=== PATIENT | female | born 1945 | race Caucasian/White ===

== ENCOUNTER 2022-12-04 02:02 | Outpatient (CLI) | payer MEDICARE, MEDICAID, SELFPAY ==
--- NOTE | 2022-12-04 08:00 | DI.CT_ITS ---
Exam(s) CT CHEST WO EXAM: CT CHEST WO CLINICAL HISTORY: interstitial abnormality on CXR, crackles on exam,F/U ABNL CXR,R93.89 TECHNIQUE: Imaging Protocol: Axial computed tomography images with coronal and sagittal reformatted images were created and reviewed CONTRAST MATERIAL: Intravenous: Omnipaque 350 Contrast volume:structured data ml. COMPARISON: CT CT RENAL COLIC from 05/12/2022 CR XR CHEST 1 VW from 09/04/2022 CR XR CHEST 1 VW from 09/25/2022 FINDINGS: Exam limited by respiratory motion. No visible emphysematous edges. Mild bronchiectasis upper and l ower lobes. No bronchial wall thickening. Pulmonary parenchyma: No consolidation. No dominant measurable mass. No pulmonary nodules identified . Interstitial changes greatest at posterior lung bases. Tracheobronchial tree: No bronchiectasis or mucous plugging. Mediastinum and Sarah: No dominant adenopathy or fluid collection. Pleura: No effusion or pneumothorax. Heart: The heart is not dilated. coronary artery calcifications are seen. Aorta: Thoracic aorta non-dilated. Upper abdomen: Cyst left kidney. No follow-up recommended. Patient is status post cholecystectomy. No biliary dilatation. Bones: Degenerative changes. Several mild compression fractures noted in the thoracic region. Mode rate L1 compression fracture stable from prior CT. Soft tissues: Unremarkable. IMPRESSION: Moderate interstitial changes. Mild bronchiectasis. No evidence of pulmonary nodule or other suspicio us finding. RADIATION DOSE DELIVERED: 558.85mGy.cm Total DLP DATA REPOSITORY: All CT scans at this facility are submitted to the National Radiology Data Registry (NRDR) Dose Index Registry (DIR) with the [employer] ([employer]). RADIATION OPTIMIZATION: All CT scans at this facility use at least one of these dose optimization te chniques: automated exposure control; mA and/or kV adjustment per patient size (includes targeted exa ms where dose is matched to clinical indication); or iterative reconstruction.
== END 2022-12-04 02:22 ==
LOC: DI 02:02
PROVIDERS: PCP Hospitalist; Visit Provider Student in an Organized Health Care Education/Training Program
DX: R91.8 Other nonspecific abnormal finding of lung field (principal); J47.9 Bronchiectasis, uncomplicated
CPT/HCPCS: 71250

== ENCOUNTER 2022-12-04 03:36 | Outpatient (CLI) | payer MEDICARE, MEDICAID, SELFPAY ==
[2022-12-04] MEDS: Albuterol HFA 18 GM 200 PUFF INH IH (15:41)
[2022-12-04] MEDS: Inhaler, Assist Device 1 EACH MC (15:41)
--- NOTE | 2022-12-17 07:18 | W.PFT ---
Date of service: 12/04/22 Time of Service: 14:34 Pulmonary Function Test Result Requesting Provider Rose Indications: COPD Interpretation Spirometry: There is no airflow limitation. There is restrictive appearing spirometry Lung Volumes: patient unable to perform Diffusion Capacity: patient unable to perform Impression Restrictive appearing spirometry Clinical Correlation therefore is recommended.
--- NOTE | 2022-12-18 13:44 | W.PFT ---
Date of service: 12/04/22 Time of Service: 15:10 Pulmonary Function Test Result Requesting Provider Rose Indications: COPD Note: 6 Minute Walk Test Distance walked: 300 feet Desaturations: 93% to 90% Heart rate changes: none Recommendation:No supplemental oxygen required Alysa Rose MD Pulmonary & Critical Care Medicine Clinical Correlation therefore is recommended.
== END 2022-12-04 03:37 | disposition home or self-care (01) ==
LOC: RT 03:36
PROVIDERS: PCP Hospitalist; Visit Provider Student in an Organized Health Care Education/Training Program
DX: J44.9 Chronic obstructive pulmonary disease, unspecified (principal)
CPT/HCPCS: 94060; 94618